=== PATIENT | female | born 1990 | race Caucasian/White ===

== ENCOUNTER → 2017-05-02 | Outpatient (CLI) | payer OTHER ==
[~2017-05-02] MED LIST: ATIVAN 0.5MG0.5 MG PO; IBUPROFEN800 MG PO; LOW-OGESTREL-21 EACH PO; PRILOSEC20 MG PO; PROBIOTIC1 EAC1 PO; WOMEN'S DAILY1 EACH PO
[2017-05-02 10:23] LABS: BASOPHIL % 0.6 %; EOSINOPHIL # 0.1 K/uL (0.0-0.5); EOSINOPHIL % 2.1 %; HEMATOCRIT 41.2 % (33.0-46.0); HEMOGLOBIN 13.9 g/dL (11.0-15.0); IMMATURE GRANULOCYTE % 0.2 %; LYMPHOCYTE % 45.9 %; MCH 30.9 pg (27.0-34.0); MCHC 33.7 gm/dL (32.0-36.5); MCV 91.6 fl (83.0-98.0); MONOCYTE # 0.7 K/uL (0.0-1.0); MONOCYTE % 9.8 %; MPV 10.6 fl (9.4-12.4); NEUTROPHIL # (ANC) 2.7 K/uL (1.8-7.8); NEUTROPHIL % 41.4 %; NRBC % 0 /100WBC (0-0.00); PLATELET COUNT 238 K/uL (150-450); WBC 6.6 K/uL (4.0-11.0)
[2017-05-02 10:40] LABS: ANION GAP 8.9 (10.0-19.0); CREATININE 0.9 mg/dL (0.5-1.1); POTASSIUM 3.9 mMol/L (3.7-5.1)
== END | disposition disaster alternative care site (69) ==
LOC: GLAB 10:00
PROVIDERS: Surgery
DX: Z01.818 Encounter for other preprocedural examination (principal); K21.0 Gastro-esophageal reflux disease with esophagitis